=== PATIENT | female | born 1990 ===

== ENCOUNTER 2022-05-20 07:00 | Inpatient (IN) | payer OTHER ==
[~2022-05-20] VITALS: Ht 154.9 cm; Wt 2.7 kg
[2022-05-20] MEDS ORDERED: PRENATABS FA T1 EACH PO (09:53)
== END 2022-05-24 15:43 | disposition home or self-care (01) | DRG 788 ==
LOC: OB/GYN 05-21 07:00 → O/R 05-21 09:47 → OB/GYN 05-21 13:30
PROVIDERS: ADMIT Obstetrics & Gynecology; ATTEND Obstetrics & Gynecology
PROC: 4A1HXCZ Monitoring of Products of Conception, Cardiac Rate, External Approach (ICD-10-PCS; 2022-05-21)
PROC: 10D00Z1 Extraction of Products of Conception, Low, Open Approach (ICD-10-PCS; principal; 2022-05-21 13:30)
DX: O34.211 Maternal care for low transverse scar from previous cesarean delivery (principal); Z3A.39 39 weeks gestation of pregnancy; Z37.0 Single live birth; Z20.822 Contact with and (suspected) exposure to COVID-19